=== PATIENT | female | born 1995 | race Caucasian/White ===

== ENCOUNTER 2017-11-12 12:03 | Inpatient (IN) | payer OTHER ==
[~2017-11-12] VITALS: Ht 167.6 cm; Wt 112.0 kg
[2017-11-12] VITALS (8 sets, daily range): BP systolic 125–146; BP diastolic 70–86
[2017-11-12] MEDS ORDERED: GLYBURIDE2.5 MG PO (13:27)
[2017-11-12] MEDS ORDERED: METOCLOPRAMIDE10 MG PO (13:28)
[2017-11-12 15:41] LABS: BASOPHIL (%) 0.2 % (0-1); EOSINOPHIL (%) 0.8 % (0-5); EOSINOPHIL COUNT 0.1 K/uL (0-0.3); HEMOGLOBIN 11.1 G/DL (11.9-15.5); IMMATURE GRANULOCYTE (%) 0.4 % (0.0-0.7); LYMPHOCYTE (%) 12.3 % (15-42); LYMPHOCYTE COUNT 1.3 K/uL (1.0-2.8); MCH 25.6 PG (29.0-34.0); MCHC 32.6 G/DL (30.0-36.0); MCV 78.5 FL (83-99); MONOCYTE (%) 5.1 % (3-12); MONOCYTE COUNT 0.5 K/uL (0-0.8); NEUTROPHIL (%) 81.2 % (45-76); NEUTROPHIL COUNT 8.3 K/uL (1.8-6.4); PLATELET COUNT 230 K/uL (156-360); RBC DIS.WIDTH-CV 15.6 % (11.8-14.6); RBC DIS.WIDTH-SD 44.8 % (39-53); RED BLOOD COUNT 4.33 M/uL (3.80-5.20); WHITE BLOOD COUNT 10.2 K/uL (4.1-10.2)
[2017-11-12 16:32] LABS: AMPHETAMINE NEGATIVE (500 ng/mL); BARBITURATES NEGATIVE (200 ng/mL); BENZODIAZEPINES NEGATIVE (150 ng/mL); BUPRENORPHINE NEGATIVE (10 ng/mL); COCAINE NEGATIVE (150 ng/mL); METHADONE NEGATIVE (200 ng/mL); METHAMPHETAMINE NEGATIVE (500 ng/mL); OPIATES (MORPHINE) NEGATIVE (100 ng/mL); OXYCODONE NEGATIVE (100 ng/mL); PHENCYCLIDINE NEGATIVE (25 ng/mL); PROPOXYPHENE NEGATIVE (300 ng/mL); THC CANNABINOIDS NEGATIVE (50 ng/mL); TRICYCLIC ANTIDEPRESSANTS NEGATIVE (300 ng/mL)
[2017-11-12 17:04] LABS: FIBRINOGEN 428 mg/dL (150-450); INTER. NORMALIZED RATIO 0.9
[2017-11-12 17:06] LABS: PTT 21.3 SEC (25-37)
[2017-11-12 17:19] LABS: ALBUMIN 3.4 G/DL (3.2-4.8); ALKALINE PHOSPHATASE 126 IU/L (3-129); ALT (GPT) 12 IU/L (3-49); AST (GOT) 13 IU/L (2-34); CHLORIDE 109 MEQ/L (99-109); CREATININE 0.5 MG/DL (0.6-1.3); GFR ESTIMATE (CALCULATED) > 59 mL/min/; GLUCOSE 79 mg/dL (70-99); POTASSIUM 3.7 MEQ/L (3.7-5.4); SODIUM 137 MEQ/L (136-147); TOTAL BILIRUBIN 0.2 MG/DL (0.0-1.0); TOTAL PROTEIN 6.5 G/DL (6.4-8.3); UREA NITROGEN (BUN) 7 mg/dL (9-23)
[2017-11-13] VITALS (23 sets, daily range): BP systolic 115–174; BP diastolic 59–105
[2017-11-14 06:25] LABS: BASOPHIL (%) 0.3 % (0-1); EOSINOPHIL (%) 0.9 % (0-5); EOSINOPHIL COUNT 0.1 K/uL (0-0.3); HEMATOCRIT 31.4 % (36.0-46.0); HEMOGLOBIN 10.1 G/DL (11.9-15.5); IMMATURE GRANULOCYTE (%) 0.4 % (0.0-0.7); LYMPHOCYTE (%) 15.2 % (15-42); LYMPHOCYTE COUNT 1.6 K/uL (1.0-2.8); MCH 25.3 PG (29.0-34.0); MCHC 32.2 G/DL (30.0-36.0); MCV 78.5 FL (83-99); MONOCYTE COUNT 0.6 K/uL (0-0.8); NEUTROPHIL (%) 77.2 % (45-76); NEUTROPHIL COUNT 8.1 K/uL (1.8-6.4); PLATELET COUNT 213 K/uL (156-360); RBC DIS.WIDTH-CV 15.9 % (11.8-14.6); RBC DIS.WIDTH-SD 44.6 % (39-53); WHITE BLOOD COUNT 10.4 K/uL (4.1-10.2)
[2017-11-14 08:02] VITALS: BP 123/89
[2017-11-14 08:04] VITALS: BP 123/81
[2017-11-14] MEDS ORDERED: IBUPROFEN800 MG PO (10:09)
[2017-11-14] MEDS ORDERED: METFORMIN HCL500 MG PO (10:10)
== END 2017-11-14 10:25 | disposition home or self-care (01) | DRG 775 ==
LOC: LDRP-OP → 2WEST 12:04 → LDRP-OP 12-25 13:38
PROVIDERS: Advanced Practice Midwife; Obstetrics & Gynecology Obstetrics
PROC: 0HQ9XZZ Repair Perineum Skin, External Approach (ICD-10-PCS; principal; 2017-11-13)
PROC: 10E0XZZ Delivery of Products of Conception, External Approach (ICD-10-PCS; principal; 2017-11-13)
PROC: 10907ZC Drainage of Amniotic Fluid, Therapeutic from Products of Conception, Via Natural or Artificial Opening (ICD-10-PCS; principal; 2017-11-13)
PROC: 3E033VJ Introduction of Other Hormone into Peripheral Vein, Percutaneous Approach (ICD-10-PCS; principal; 2017-11-13)
PROC: 00HU33Z Insertion of Infusion Device into Spinal Canal, Percutaneous Approach (ICD-10-PCS; principal; 2017-11-13)
PROC: 3E0R3BZ Introduction of Anesthetic Agent into Spinal Canal, Percutaneous Approach (ICD-10-PCS; principal; 2017-11-13)
PROC: 0U7C7ZZ Dilation of Cervix, Via Natural or Artificial Opening (ICD-10-PCS; principal; 2017-11-13)
DX: O36.4XX0 Maternal care for intrauterine death, not applicable or unspecified (principal); Z37.1 Single stillbirth; O77.0 Labor and delivery complicated by meconium in amniotic fluid; O70.0 First degree perineal laceration during delivery; O66.0 Obstructed labor due to shoulder dystocia; O69.81X0 Labor and delivery complicated by cord around neck, without compression, not applicable or unspecified; O24.425 Gestational diabetes mellitus in childbirth, controlled by oral hypoglycemic drugs; O99.214 Obesity complicating childbirth; E66.9 Obesity, unspecified; Z68.31 Body mass index [BMI] 31.0-31.9, adult; Z3A.38 38 weeks gestation of pregnancy
CPT/HCPCS: 80053; 82948; 85025; 85384; 85610; 85730; 86850; 86900; 86901; 88307; G0378; J0595; J1815; J3010; J7120